=== PATIENT | female | born 1980 | race African-American/Black ===

== ENCOUNTER 2021-10-18 06:38 | Emergency (ER) | payer SELFPAY ==
[~2021-10-18] VITALS: Ht 157.5 cm; Wt 86.7 kg
[2021-10-18] MEDS ORDERED: ACETAMINOPHEN WITH CODEINE 300/30MG TABLET PO ONE (07:30)
[2021-10-18 08:10] VITALS: BP 122/74
[2021-10-18] MEDS ORDERED: IBUP-2028 PO ×3 (09:05→09:11)
[2021-10-18] MEDS ORDERED: T3 PO ×3 (09:05→09:11)
== END 2021-10-18 09:23 | disposition home or self-care (01) ==
LOC: ER 06:38
DX: M54.50 Low back pain, unspecified (principal); M79.18 Myalgia, other site; W01.0XXA Fall on same level from slipping, tripping and stumbling without subsequent striking against object, initial encounter; Y93.9 Activity, unspecified; Y92.9 Unspecified place or not applicable
CPT/HCPCS: 72100; 99283